=== PATIENT | female | born 1975 | race Caucasian/White ===

== ENCOUNTER → 2016-05-27 | Outpatient (CLI) | payer OTHER, MEDICAID | LOC: RAD 07:56 | PROVIDERS: ATTEND Urology | DX: R31.0 Gross hematuria (principal); R16.1 Splenomegaly, not elsewhere classified | CPT/HCPCS: 74178; Q9967 ==

== ENCOUNTER → 2016-06-07 | Outpatient (CLI) | payer OTHER, MEDICAID | LOC: RAD 12:17 | PROVIDERS: ATTEND Family Medicine | DX: R31.0 Gross hematuria (principal); N94.89 Other specified conditions associated with female genital organs and menstrual cycle | CPT/HCPCS: 72197; 74183; A9579 ==

== ENCOUNTER 2016-06-25 19:53 | Emergency (ER) | payer OTHER, MEDICAID ==
[~2016-06-25] VITALS: Ht 172.7 cm; Wt 104.6 kg
[2016-06-25] MEDS ORDERED: ONDANSETRON 2 MG/ML (Z0FRAN) 2 ML VIAL IV ONE (20:15)
[2016-06-25] MEDS ORDERED: HYDROmorphone 1 MG/ML (DILAUDID) SYRINGE IV PRN (20:15)
[2016-06-25] MEDS ORDERED: SODIUM CHLORIDE FLUSH 10 ML SYR IV PRN (20:15)
[2016-06-25] MEDS ORDERED: SODIUM CHLORIDE FLUSH 3 ML SYR IV PRN (20:15)
[2016-06-25 20:40] LABS: BILIRUBIN,URINE Negative (Negative); CLARITY,URINE Cloudy; GLUCOSE, URINE (UA) Negative (Negative); LEUKOCYTE ESTERASE ,URINE 1+ (Negative); PH,URINE 8.5 (5.0 - 8.0)
[2016-06-25 20:51] LABS: ALBUMIN 4.1 g/dL (3.4-5.0); ANION GAP 14.5 MEQ/L (3-15); CALCULATED IONIZED CALCIUM 3.7 mg/dL (3.8-4.6); TOTAL PROTEIN 8.4 g/dL (6.4-8.5)
[2016-06-25 21:09] LABS: BASOPHILS % (AUTO) 0 % (0-2); EOSINOPHILS % (AUTO) 1 % (0-4); LYMPHOCYTES # (AUTO) 0.5 X10^3; MEAN CORPUSCULAR HEMOGLOBIN 30.4 PG (26.0-34.0); MEAN CORPUSCULAR HGB CONC 35.2 g/dL (31.0-37.0); MEAN CORPUSCULAR VOLUME 86 FL (80-100); MEAN PLATELET VOLUME 12.1 FL (6.0-9.5); MONOCYTES # (AUTO) 0.3 X10^3; MONOCYTES % (AUTO) 9 % (3-11); NEUTROPHILS # (AUTO) 2.7 X10^3; NEUTROPHILS % (AUTO) 76 % (51-67); PLATELET COUNT 70 10^3uL (150-450); WHITE BLOOD COUNT 3.53 10^3uL (4.0-11.0)
[2016-06-25 21:14] LABS: COLOR,URINE Dark Yellow
[2016-06-25 21:28] LABS: RBC,URINE 20-50 /HPF; URINE CENTRIFUGED VOLUME 12 mL
[2016-06-25] MEDS ORDERED: LEVOFLOXACIN 250 MG TAB (LEVAQUIN) PO SCH (22:05)
[2016-06-25 22:20] VITALS: BP 128/64
== END 2016-06-25 22:23 | disposition home or self-care (01) ==
LOC: ED 19:54
DX: N39.0 Urinary tract infection, site not specified (principal); D61.818 Other pancytopenia; R50.9 Fever, unspecified; Z98.890 Other specified postprocedural states
CPT/HCPCS: 36415; 74020; 80053; 81003; 81015; 82150; 83690; 85025; 87088; 96361; 96374; 96375; 99283; J1170; J2405; J7030

== ENCOUNTER 2016-09-11 11:53 | Emergency (ER) | payer OTHER, MEDICAID ==
[~2016-09-11] VITALS: Ht 172.7 cm; Wt 104.6 kg
[~2016-09-11 11:53] MED LIST: AZIT500T PO; CPR500T PO; CYCL-265 PO; ESCI10TA PO; FERR325T36 PO; FLUC150T PO; HYDR-4131 PO; HYDR200T PO; LVF500T PO; METH4TAB27 PO; METR500T17 PO; NO HOME MEDS; SULF1TAB35 PO; TRM50T PO; [UNRECOGNIZED DRUG - CODE] PO; [UNRECOGNIZED DRUG - OTHER]
[2016-09-11] MEDS ORDERED: NITR100C3 PO (12:17)
[2016-09-11] MEDS ORDERED: SODIUM CHLORIDE FLUSH 3 ML SYR IV PRN (12:20)
[2016-09-11] MEDS ORDERED: KETOROLAC 30 MG/ML (TORADOL) 1 ML VIAL IV ONE (12:20)
[2016-09-11] MEDS ORDERED: SODIUM CHLORIDE FLUSH 10 ML SYR IV PRN (12:20)
[2016-09-11 12:37] LABS: MEAN CORPUSCULAR HEMOGLOBIN 28.2 PG (26.0-34.0); MEAN CORPUSCULAR HGB CONC 32.5 g/dL (31.0-37.0); MEAN CORPUSCULAR VOLUME 87 FL (80-100); MEAN PLATELET VOLUME 12.5 FL (6.0-9.5); PLATELET COUNT 87 10^3uL (150-450); WHITE BLOOD COUNT 1.75 10^3uL (4.0-11.0)
[2016-09-11 12:39] LABS: BILIRUBIN,URINE Negative (Negative); CLARITY,URINE Clear; GLUCOSE, URINE (UA) Negative (Negative); LEUKOCYTE ESTERASE ,URINE Negative (Negative); PH,URINE 8.5 (5.0 - 8.0); UROBILINOGEN,URINE 0.2 mg/dL (0.2-1.0)
[2016-09-11 12:45] LABS: COLOR,URINE Dark Yellow
[2016-09-11 12:50] LABS: ALBUMIN 3.8 g/dL (3.4-5.0); ALKALINE PHOSPHATASE 61 U/L (38-126); ANION GAP 12.3 MEQ/L (3-15); BUN/CREATININE RATIO 17 (10-20); CALCULATED IONIZED CALCIUM 3.6 mg/dL (3.8-4.6); TOTAL PROTEIN 8.1 g/dL (6.4-8.5)
--- NOTE | 2016-09-11 12:58 | NUR ---
Patient reports pain level is down to 4/10.
[2016-09-11 13:15] LABS: BAND NEUTROPHILS % 5 % (0-6); EOSINOPHILS % 3 % (0-4); LYMPHOCYTES # 0.4 #; MONOCYTES # 0.1 #; MONOCYTES % 13 % (3-11); RBC MORPH NORMAL (NORMAL); SEGMENTED NEUTROPHILS % 53 % (51-67); TOTAL CELLS COUNTED 100
[2016-09-11] MEDS ORDERED: ONDA4TAB8 PO (13:32)
[2016-09-11 13:46] VITALS: BP 101/55
== END 2016-09-11 13:49 | disposition home or self-care (01) ==
LOC: EDUNIT# 11:53 → ED 11:55
DX: A09 Infectious gastroenteritis and colitis, unspecified (principal); R11.11 Vomiting without nausea
CPT/HCPCS: 36415; 80053; 81003; 85025; 86140; 96361; 96374; 99283; J1885; J7030; 85007

== ENCOUNTER → 2016-09-13 | Outpatient (CLI) | payer OTHER, MEDICAID ==
[~2016-09-13] MED LIST changes: +NITR100C3 PO; +ONDA4TAB8 PO
[2016-09-13 14:25] LABS: MEAN CORPUSCULAR HEMOGLOBIN 28.4 PG (26.0-34.0); MEAN CORPUSCULAR HGB CONC 32.9 g/dL (31.0-37.0); MEAN CORPUSCULAR VOLUME 86 FL (80-100); MEAN PLATELET VOLUME 11.9 FL (6.0-9.5); PLATELET COUNT 90 10^3uL (150-450); WHITE BLOOD COUNT 2.12 10^3uL (4.0-11.0)
[2016-09-13 14:40] LABS: ALBUMIN 3.8 g/dL (3.4-5.0); ANION GAP 12.3 MEQ/L (3-15); CALCULATED IONIZED CALCIUM 3.8 mg/dL (3.8-4.6); TOTAL PROTEIN 7.6 g/dL (6.4-8.5)
[2016-09-13 14:41] LABS: BAND NEUTROPHILS % 0 % (0-6); EOSINOPHILS % 1 % (0-4); LYMPHOCYTES # 0.6 #; MONOCYTES # 0.2 #; MONOCYTES % 10 % (3-11); SEGMENTED NEUTROPHILS % 62 % (51-67); TOTAL CELLS COUNTED 100
[2016-09-13 14:42] LABS: RBC MORPH NORMAL (NORMAL)
== END ==
LOC: LAB 14:10
PROVIDERS: ATTEND Family Medicine
DX: R11.0 Nausea (principal)
CPT/HCPCS: 36415; 80053; 85025